=== PATIENT | female | born 1955 | race Caucasian/White ===

== ENCOUNTER 2017-08-05 11:30 | Inpatient (IN) | payer OTHER ==
[~2017-08-05] VITALS: Ht 152.4 cm; Wt 61.9 kg
[2017-08-11] MEDS ORDERED: VITA1000 PO (12:43)
[2017-08-11] MEDS ORDERED: HYDR-3583 PO (12:43)
[2017-08-11] MEDS ORDERED: OMEG100046 PO (12:43)
[2017-08-11] MEDS ORDERED: CALC1TAB87 PO (12:43)
[2017-08-11] MEDS ORDERED: LORA1TAB12 PO (12:43)
[2017-08-12] MEDS ORDERED: ceFAZolin INJ 1,000 MG VIAL ONE ×2 (10:24→12:12)
[2017-08-12] MEDS ORDERED: FUROSEMIDE 20 MG/2 ML VIAL ONE (10:24)
[2017-08-12] MEDS ORDERED: MANNITOL INJ 0 ML ONE (10:29)
[2017-08-12] MEDS ORDERED: CHLORHEXIDINE GLUCONATE 2 % 1 PACK (2 CLOTHS) TOPICAL PRN (10:30)
[2017-08-12] MEDS ORDERED: ceFAZolin 2 GM PREMIX 50 ML IV SCH ×3 (10:30→17:00)
[2017-08-12] MEDS ORDERED: METOPROLOL TARTRATE 25 MG TAB PO PRN (10:30)
[2017-08-12] MEDS ORDERED: INSULIN HUMAN REGULAR 1,000 UNITS/10 ML VIAL SQ PRN (10:30)
[2017-08-12] MEDS ORDERED: LACTATED RINGER'S 1000 ML IV PRN (10:30)
[2017-08-12] MEDS ORDERED: SODIUM CHLORID 0.9% 500 ML IV PRN (10:30)
[2017-08-12] MEDS ORDERED: POVIDONE IODINE 5% (ANTISEPSIS KIT) 4 APPLICATIONS EACH NARE PRN (10:30)
[2017-08-12] MEDS ORDERED: CYAN100025 PO (10:49)
[2017-08-12 10:54] LABS: PROTHROMBIN TIME - PATIENT 10.1 SEC (9.8-11.6)
[2017-08-12] MEDS ORDERED: hydrALAZINE HCL 20 MG/ML VIAL IV ONE (12:00)
[2017-08-12] MEDS ORDERED: PROPOFOL 200 MG/20 ML AMP IV ONE (12:00)
[2017-08-12] MEDS ORDERED: ONDANSETRON HCL 4 MG/2 ML VIAL IV ONE (12:00)
[2017-08-12] MEDS ORDERED: STERILE WATER FOR INJECTION 20 ML VIAL IV ONE (12:00)
[2017-08-12] MEDS ORDERED: ROCURONIUM INJ 50 MG/5 ML SYRINGE IV PUSH ONE ×2 (12:00→15:02)
[2017-08-12] MEDS ORDERED: NORMOSOL R INJ 1,000 ML IV ONE (12:00)
[2017-08-12] MEDS ORDERED: LABETALOL HCL 100 MG/20 ML VIAL IV ONE (12:00)
[2017-08-12] MEDS ORDERED: LIDOCAINE HCL 1% PF 5 ML SYRINGE OTHER ONE (12:00)
[2017-08-12] MEDS ORDERED: DEXAMETHASONE SOD PHOS 4 MG/ML VIAL IV ONE (12:00)
[2017-08-12] MEDS ORDERED: LACTATED RINGER'S 1000 ML INJ 1,000 ML IV ONE (12:00)
[2017-08-12] MEDS ORDERED: ACETAMINOPHEN 1000 MG/100 ML 100 ML IV ONE (13:13)
[2017-08-12] MEDS ORDERED: HYDROmorphone HCL PF 2 MG/ML VIAL ONE (13:14)
[2017-08-12] MEDS ORDERED: ceFAZolin INJ 1,000 MG VIAL IV ONE (13:23)
[2017-08-12] MEDS ORDERED: SUGAMMADEX SODIUM 200 MG/2 ML VIAL IV PUSH ONE (14:24)
[2017-08-12] MEDS ORDERED: ONDANSETRON HCL 4 MG/2 ML VIAL IV PUSH PRN (16:15)
--- NOTE | 2017-08-12 16:22 | HHI.PR ---
Immediate Post Op Note Procedure Date: Aug 12, 2017 Pre Op Diagnosis: Left Ureteral TCC Post Op Diagnosis: same Surgeon: Pierce Pelayo Photo Mask Processor(s): N/A Procedure: Robotic Left Nephroureterectomy Complications: none Specimen(s) removed: left kidney and ureter Estimated blood loss: 250 ml Anesthesia: General IVF Patient Condition: Pierce Patton MD Aug 12, 2017 16:22
[2017-08-12] MEDS ORDERED: DO NOT ADM ANY ANTICOAGULANT DRUGS PRN (17:03)
[2017-08-12] MEDS ORDERED: *ONDANSETRON 4 MG VIAL PERIprocedural Use ONLY ONE (17:22)
[2017-08-12 17:24] LABS: HEMATOCRIT 36.8 % (35.0-46.0); HEMOGLOBIN 13.2 GM/DL (11.6-15.3); MEAN CELL VOLUME 82.6 FL (80.0-100.0); MEAN CORPUSCULAR HEMOGLOBIN 29.7 PG (27.0-34.0); MEAN CORPUSCULAR HGB CONC 35.9 % (32.0-36.0); PLATELET COUNT 280 TH/MM3 (150-450); RED BLOOD COUNT 4.46 MIL/MM3 (4.00-5.30); RED CELL DISTRIBUTION WIDTH 12.6 % (11.6-17.2); WHITE BLOOD COUNT 17.8 TH/MM3 (4.0-11.0)
[2017-08-12] MEDS ORDERED: *morphine SULFATE 10 MG/ML PERIprocedure ONLY ONE ×2 (17:28→18:53)
[2017-08-12] MEDS: SODIUM CHLOR 0.9% 1000 ML INJ 1,000 ML IV SCH (17:30)
[2017-08-12] MEDS ORDERED: BELLADONNA ALKALOIDS/OPIUM 60 MG SUPP RECTAL ONE ×2 (17:32)
[2017-08-12 17:36] LABS: BICARBONATE 24.6 MEQ/L (21.0-32.0); CALCIUM 8.2 MG/DL (8.5-10.1); CREATININE 1.06 MG/DL (0.50-1.00)
[2017-08-12] MEDS ORDERED: *PROMETHAZINE 25 MG/ML VIAL PERIprocedural use ONLY ONE (17:39)
[2017-08-12] MEDS ORDERED: LORazepam 2 MG/ML VIAL ONE (17:59)
[2017-08-12] MEDS ORDERED: LORazepam 2 MG/ML VIAL IV ONE (18:15)
[2017-08-12] MEDS: PANTOPRAZOLE SODIUM 40 MG VIAL IV PUSH SCH (18:45)
[2017-08-12] MEDS: ACETAMINOPHEN 1000 MG/100 ML 100 ML IV SCH (19:00)
--- NOTE | 2017-08-12 19:22 | RADRPT ---
EXAM DATE/TIME: 08/12/2017 18:45 [facility] COMPARISON: No previous studies available for comparison. INDICATIONS : Rule out pneumonia, and or pneumothorax. MEDICAL HISTORY : None. SURGICAL HISTORY : None. ENCOUNTER: Initial ACUITY: 1 day PAIN SCORE: 0/10 LOCATION: Bilateral chest FINDINGS: The cardiac silhouette is enlarged in transverse diameter. There is no evidence of pneumothorax. The re is extensive subcutaneous emphysema bilaterally. The lungs are free of acute parenchymal opacity. No effusions are identified. CONCLUSION: 1. No evidence of pneumothorax. Extensive subcutaneous emphysema. CT scan is recommended for further evaluation if clinically indicated. Venkatesh Welch MD on August 12, 2017 at 19:20 Board Certified Radiologist. This report was verified electronically.
[2017-08-12 20:00] VITALS: BP 151/86; PULSE 72; RESP 14; TEMP 98.2; O2SAT 98
[2017-08-12] MEDS: DOCUSATE SODIUM 100 MG CAP PO SCH (20:27)
[2017-08-12] MEDS: MORPHINE SULFATE 4 MG/ML INJ IV PUSH PRN (20:46)
[2017-08-12] MEDS: LORazepam 1 MG TAB PO PRN (21:08)
[2017-08-12 22:00] VITALS: PULSE 72
[2017-08-13] VITALS (8 sets, daily range): BP systolic 107–129; BP diastolic 55–60; PULSE 68–78; RESP 13–22; TEMP 98.5–99.7; O2SAT 92–98
[2017-08-13] MEDS: ACETAMINOPHEN 1000 MG/100 ML 100 ML IV SCH ×3 (02:52→11:55)
[2017-08-13] MEDS: SODIUM CHLOR 0.9% 1000 ML INJ 1,000 ML IV SCH ×2 (02:57→11:56)
[2017-08-13 03:36] LABS: AUTOMATED NEUTROPHIL # 6.9 TH/MM3 (1.8-7.7); BASOPHIL % 0.1 % (0.0-2.0); HEMATOCRIT 37.3 % (35.0-46.0); HEMOGLOBIN 12.7 GM/DL (11.6-15.3); MEAN CELL VOLUME 84.2 FL (80.0-100.0); MEAN CORPUSCULAR HEMOGLOBIN 28.6 PG (27.0-34.0); MEAN PLATELET VOLUME 7.4 FL (7.0-11.0); MONO % 6.6 % (0.0-8.0); MONOCYTE # 0.6 TH/MM3 (0-0.9); NEUT % 72.3 % (16.0-70.0); PLATELET COUNT 251 TH/MM3 (150-450); RED BLOOD COUNT 4.44 MIL/MM3 (4.00-5.30); RED CELL DISTRIBUTION WIDTH 12.8 % (11.6-17.2); WHITE BLOOD COUNT 9.5 TH/MM3 (4.0-11.0)
[2017-08-13 04:02] LABS: CALCIUM 7.7 MG/DL (8.5-10.1); CREATININE 1.29 MG/DL (0.50-1.00)
[2017-08-13] MEDS: DOCUSATE SODIUM 100 MG CAP PO SCH ×2 (07:58→20:16)
[2017-08-13] MEDS: MORPHINE SULFATE 4 MG/ML INJ IV PUSH PRN ×4 (09:30→20:18)
--- NOTE | 2017-08-13 13:37 | HHI.PR ---
Subjective Patient symptoms today pain well controlled. Bladder spasms resolving. Tolerating clears. Has appetite. Denies CP/SOB/N/V/F/C or passing flatus. Been OOB x 1 Objective Vital Signs Vital Signs Date Time Temp Pulse Resp B/P (MAP) Pulse Ox O2 Delivery O2 Flow Rate FiO2 08/13/17 12:00 98.5 68 18 113/57 (75) 98 08/13/17 12:00 68 08/13/17 10:00 70 08/13/17 08:00 98.9 78 22 110/58 (75) 92 08/13/17 08:00 78 08/13/17 07:00 92 Nasal Cannula 3.00 08/13/17 06:00 76 08/13/17 04:00 99.3 72 15 107/55 (72) 98 08/13/17 04:00 72 08/13/17 02:00 71 08/13/17 00:00 73 08/13/17 00:00 98.7 73 13 122/59 (80) 97 08/12/17 22:00 72 08/12/17 20:00 72 08/12/17 20:00 98.2 72 14 151/86 (107) 98 Arterial Line 08/12/17 20:00 98 Nasal Cannula 3.00 08/12/17 19:30 97.8 74 18 129/64 (85) 96 Nasal Cannula 3 08/12/17 19:15 75 22 128/80 (96) 96 Nasal Cannula 3 08/12/17 19:00 78 16 128/86 (100) 96 Nasal Cannula 3 08/12/17 18:45 73 16 141/74 (96) 97 Nasal Cannula 3 08/12/17 18:30 71 16 141/67 (91) 98 Nasal Cannula 3 08/12/17 18:15 70 13 141/66 (91) 97 Nasal Cannula 3 08/12/17 18:00 71 14 136/64 (88) 92 Nasal Cannula 3 08/12/17 17:45 74 24 140/63 (88) 95 Nasal Cannula 2 154/67 (96) 08/12/17 17:30 71 22 132/68 (89) 94 Nasal Cannula 2 146/60 (88) 08/12/17 17:15 75 18 134/66 (88) 95 Nasal Cannula 2 148/63 (91) 08/12/17 17:12 Nasal Cannula 2 08/12/17 17:01 98.2 81 19 139/62 (87) 96 Nasal Cannula 4 Intake & Output 08/13/17 08/13/17 07:00 19:00 Intake Total 332 ml 1000 ml Output Total 875 ml Balance -543 ml 1000 ml Intake Oral 0 ml IV Total 332 ml 1000 ml Output Urine Total 875 ml Result Diagram: 08/13/1724808/13/17248 Objective Remarks NAD. A/O x 3 CTAB RRR abd soft, appropriate, NT. inc c/d/i. Rutherford crystal clear Ext NT. no edema Medications and IVs Current Medications Medications (Trade) Dose Ordered Sig/Bob Route Start Time Stop Time Status Last Admin Lactated Ringer's 1,000 ml @ 30 mls/hr Q24H PRN IV 08/12/17 10:30 08/15/17 10:29 08/12/17 10:00 Sodium Chloride 500 ml @ 30 mls/hr [id number] PRN IV 08/12/17 10:30 08/15/17 10:29 (Lopressor) 25 mg COAL SHOVELER PRN PO 08/12/17 10:30 08/15/17 10:29 (Betadine 5% Antisepsis Kit) 1 applic COAL SHOVELER PRN EACH NARE 08/12/17 10:30 08/15/17 10:29 08/12/17 10:00 (Chlorhexidine 2% Cloth) 3 pack COAL SHOVELER PRN TOPICAL 08/12/17 10:30 08/15/17 10:29 08/12/17 09:45 (NovoLIN R INJ) See Protocol Table ... COAL SHOVELER PRN SQ 08/12/17 10:30 08/15/17 10:29 (Colace) 100 mg BID PO 08/12/17 21:00 08/13/17 07:58 (Roxicodone) 10 mg Q4H PRN PO 08/12/17 16:15 08/13/17 12:16 (Roxicodone) 5 mg Q4H PRN PO 08/12/17 16:15 Acetaminophen 100 ml @ 400 mls/hr Q6H IV 08/12/17 19:00 08/13/17 11:55 (Morphine Inj) 4 mg Q3H PRN IV PUSH 08/12/17 16:15 08/13/17 13:30 (Zofran Inj) 4 mg Q6HR PRN IV PUSH 08/12/17 16:15 (Protonix Inj) 40 mg Q24H IV PUSH 08/12/17 17:00 08/12/17 18:45 Sodium Chloride 1,000 ml @ 83 mls/hr Q12H3M IV 08/12/17 16:15 08/13/17 11:56 (Ativan) 1 mg BID PRN PO 08/12/17 16:30 08/12/17 21:08 Cefazolin Sodium/ Dextrose 50 ml @ 100 mls/hr COAL SHOVELER IV 08/12/17 13:23 Miscellaneous Information ALL NURSING DEPARTME... UNSCH PRN .XX 08/12/17 17:03 08/13/17 17:02 Assessment and Plan Assessment and Plan POD #1 s/p Robotic Left Nephroureterectomy -Hgb stable -advance diet -Good UOP -BMP in a.m. -Ambulate, IS -transfer to floor -Rutherford catheter to remain in place x 5 days. Cystogram prior to removal. Pierce Pelayo MD Aug 13, 2017 13:37
[2017-08-13] MEDS: LORazepam 1 MG TAB PO PRN (16:51)
[2017-08-13] MEDS: oxyCODONE/ACETAMINOPHEN 5 MG/325 MG TAB PO PRN ×2 (17:59→23:28)
[2017-08-13] MEDS: PANTOPRAZOLE SODIUM 40 MG VIAL IV PUSH SCH (17:59)
[2017-08-13] MEDS ORDERED: MORPHINE SULFATE 2 MG/ML INJ IV PUSH ONE (18:00)
[2017-08-13] MEDS ORDERED: oxyCODONE/ACETAMINOPHEN 5 MG/325 MG TAB PO PRN (18:00)
[2017-08-14] VITALS: BP 119/60; PULSE 81; RESP 20; TEMP 99.4; O2SAT 93
[2017-08-14] MEDS: MORPHINE SULFATE 4 MG/ML INJ IV PUSH PRN ×3 (00:10→11:34)
[2017-08-14] MEDS: SODIUM CHLOR 0.9% 1000 ML INJ 1,000 ML IV SCH ×2 (00:14→12:35)
[2017-08-14] MEDS: oxyCODONE/ACETAMINOPHEN 5 MG/325 MG TAB PO PRN ×4 (03:35→19:49)
[2017-08-14 04:00] VITALS: BP 113/56; PULSE 80; RESP 20; TEMP 99.1; O2SAT 92
[2017-08-14 07:13] LABS: BICARBONATE 25.3 MEQ/L (21.0-32.0); CALCIUM 8.2 MG/DL (8.5-10.1); CREATININE 1.23 MG/DL (0.50-1.00)
[2017-08-14 08:00] VITALS: BP 133/60; PULSE 72; RESP 16; TEMP 97.6; O2SAT 96
[2017-08-14] MEDS: DOCUSATE SODIUM 100 MG CAP PO SCH ×2 (08:37→19:48)
[2017-08-14 12:00] VITALS: BP 174/80; PULSE 75; RESP 18; TEMP 97.1; O2SAT 94
--- NOTE | 2017-08-14 12:26 | MP ---
cc: Pierce Pelayo MD DATE OF OPERATION: 08/12/2017 PREOPERATIVE DIAGNOSIS: Left proximal ureteral transitional cell carcinoma. POSTOPERATIVE DIAGNOSIS: Left proximal ureteral transitional cell carcinoma. PROCEDURE PERFORMED: Robotic assisted laparoscopic left nephroureterectomy with bladder cuff. SURGEON: Pierce Pelayo MD ANESTHESIA: General. COMPLICATIONS: None. PREOPERATIVE ANTIBIOTICS: Ancef 1 gram IV. DRAINS: A 16 Portuguese Rutherford catheter to gravity drainage. SPECIMENS: Left kidney and ureter for permanent. BLOOD LOSS: 250 mL. FLUIDS: 3 liters of crystalloid per anesthesia. DISPOSITION: To recovery. INDICATIONS: The patient is a 62-year-old female who underwent a workup for microscopic hematuria. During workup, she was found to have a filling defect in her left proximal ureter. My partner, Dr. Shay, did a cystoscopy, ureteroscopy and ureteral biopsy which came back consistent with transitional cell carcinoma. Treatment options were discussed and she elected to proceed with definitive removal of her left kidney and ureter. Metastatic work up was negative. I discussed the risks, benefits and alternatives of the procedure with her including the risks of renal failure, dialysis, conversion to open, anesthetic risks, need for Rutherford catheter for 3 to 5 days among others and she elected to proceed. Informed consent was obtained. DETAILS OF THE PROCEDURE: The patient was properly identified, brought back to the operating room, laid supine on the operating room table. Proper time-out was performed under the direction of anesthesiology. The patient was intubated and induced under general anesthetic. Appropriate preoperative antibiotics were given within an one hour start of the procedure. An 16 Portuguese three-way Rutherford catheter was placed under sterile technique. Clear yellow urine returned. The patient was then placed in the right lateral decubitus position with left side up. All pressure points were padded. A stab incision was then made just lateral and superior to the umbilicus on the patient's left side. A Veress needle was then used to gain access to the abdominal cavity. Insufflation was achieved. The stab incision was then extended to approximately 2 cm in length. Under direct visualization, I then passed a long 12 mm camera port into the abdominal cavity. The abdominal cavity was inspected. There was no evidence of any bleeding or intraabdominal injury. At this time, 4 other ports were then placed under direct visualization including two 8 mm robotic ports to triangulate off of the camera port, a 12 mm commercial escrow assistant port in the midline superior to the umbilicus and a 12 mm commercial escrow assistant port inferior to the umbilicus along the midline. Again, all ports were placed under direct visualization. The robot was then brought into position. There was some anterior abdominal adhesions that were carefully taken down with cold dissection. At this time, I then reflected the white line of Toldt to reflect the colon medially. This exposed the retroperitoneum. She did have minimal perinephric fat. The ureter and gonadal vein were easily identified. I then developed a plane between the gonadal vein and ureter and marched up the psoas muscle following the insertion of the left gonadal vein into the left renal vein. The hilum was carefully dissected out circumferentially. There was an artery attaching anteriorly to the renal vein which was very small. It appeared to be a lower pole artery. This was taken with an endovascular stapler. This left one large renal vein which there was an obvious bifurcation, as well as a renal artery which was posterior to the vein. I was unable to separate the artery from the vein; therefore, I dissected circumferentially around both structures and these were taken together with an endovascular CHARISSE stapler. The superior and lateral attachments were then taken down with blunt dissection and electrocautery until the kidney was completely freed except inferiorly. I then carefully dissected the ureter caudally down to the level of the iliacs. A Hem-o-jasmeet clip was then placed across the mid ureter. With careful traction and a combination of blunt dissection electrocautery, I then was able to dissect the ureter all the way down to the level of the bladder. The bladder was then carefully filled up to approximately 300 mL to see the insertion of the ureter into the bladder. The bladder was then carefully drained. I then dissected the intramural ureter out of the bladder until I reached what presumably was the ureteral orifice. The robotic Hemo-o-jasmeet adjuster leader was then used to clip across the distal portion of the ureter. I then cut across the ureter with a small bladder cuff that was removed. The kidney plus ureter was then placed in the left lower quadrant for later removal. The bladder was carefully inspected as well as the low pelvis. There was no evidence of any bleeding. The hole in the bladder was quit small, therefore I did not close the hole in the bladder and let it heal secondarily to catheter drainage. At this time, the kidney and ureter was then placed in an Endo Catch bag for later removal. The renal fossa and hilum was carefully inspected. Pressure was brought down to 7 mmHg. There was no evidence of any oozing. Three grams of Briana was then used to apply for hemostatic purposes. At this time, the kidney was then extracted through the left lower quadrant incision after extending the incision. It was then closed in multiple layers. The perineum was then closed with 3-0 running Vicryl. The fascia was closed with a running 1-0 PDS. A second look was then performed in the abdominal cavity. The underside of the closure incision appeared to be free of bowel. There was no evidence of any bleeding within the abdominal cavity itself. The renal fossa did appear to be dry. All ports were then removed under direct visualization. The skin incisions were then closed with 4-0 Monocryl. This concludes the procedure. The patient was extubated and sent to recovery in stable condition. She will be transferred to the floor for routine postoperative care. We will do a cystogram prior to catheter removal in 3-5 days. Sponge, needles and instrument count was correct at the end of the case. Pierce Pelayo MD [facility]/ayden , 11:06 AM , 11:59 AM
--- NOTE | 2017-08-14 14:02 | HHI.PR ---
Subjective Patient symptoms today 62y.o. F POD #2 s/p Robotic Left Nephroureterectomy. No acute events overnight. no fever. She does admit nausea and indigestion related chest discomfort. Rutherford drains clear yellow urine. Labs are stable. She states that did not pass any flatus or BM today. Ambulates without issues. Tolerated breakfast well today. She is on regular diet now. Her main concern is her post/op pain which is not relieved by pain meds she is getting. She states that has probably 10% improvement with Morphine for short period of time Objective Vital Signs Vital Signs Date Time Temp Pulse Resp B/P (MAP) Pulse Ox O2 Delivery O2 Flow Rate FiO2 08/14/17 12:00 97.1 75 18 174/80 (111) 94 08/14/17 08:40 Nasal Cannula 2.00 08/14/17 08:00 97.6 72 16 133/60 (84) 96 08/14/17 04:00 99.1 80 20 113/56 (75) 92 08/14/17 00:00 99.4 81 20 119/60 (79) 93 08/13/17 20:15 Nasal Cannula 3.00 08/13/17 20:00 99.7 78 20 129/60 (83) 92 Intake & Output 08/14/17 08/14/17 07:00 19:00 Intake Total 120 ml Output Total 1000 ml Balance -880 ml Intake Oral 120 ml Output Urine Total 1000 ml # Bowel Movements 0 Result Diagram: 08/13/17 0249 08/14/17 0456 Objective Remarks NAD. A/O x 3 Non labored breaths, clear sounds RRR abd soft, appropriate, NT. inc c/d/i. Rutherford crystal clear Ext NT. no edema Medications and IVs Current Medications Medications (Trade) Dose Ordered Sig/Bob Route Start Time Stop Time Status Last Admin Lactated Ringer's 1,000 ml @ 30 mls/hr Q24H PRN IV 08/12/17 10:30 08/15/17 10:29 08/12/17 10:00 Sodium Chloride 500 ml @ 30 mls/hr [id number] PRN IV 08/12/17 10:30 08/15/17 10:29 (Lopressor) 25 mg RESEARCH GENETICIST PRN PO 08/12/17 10:30 08/15/17 10:29 (Betadine 5% Antisepsis Kit) 1 applic RESEARCH GENETICIST PRN EACH NARE 08/12/17 10:30 08/15/17 10:29 08/12/17 10:00 (Chlorhexidine 2% Cloth) 3 pack RESEARCH GENETICIST PRN TOPICAL 08/12/17 10:30 08/15/17 10:29 08/12/17 09:45 (NovoLIN R INJ) See Protocol Table ... RESEARCH GENETICIST PRN SQ 08/12/17 10:30 08/15/17 10:29 (Colace) 100 mg BID PO 08/12/17 21:00 08/14/17 08:37 (Morphine Inj) 4 mg Q3H PRN IV PUSH 08/12/17 16:15 08/14/17 11:34 (Zofran Inj) 4 mg Q6HR PRN IV PUSH 08/12/17 16:15 08/13/17 18:10 (Protonix Inj) 40 mg Q24H IV PUSH 08/12/17 17:00 08/13/17 17:59 Sodium Chloride 1,000 ml @ 83 mls/hr Q12H3M IV 08/12/17 16:15 08/14/17 12:35 (Ativan) 1 mg BID PRN PO 08/12/17 16:30 08/13/17 16:51 Cefazolin Sodium/ Dextrose 50 ml @ 100 mls/hr RESEARCH GENETICIST IV 08/12/17 13:23 (Percocet 5-325 Mg) 1 tab Q4H PRN PO 08/13/17 18:00 (Percocet 5-325 Mg) 2 tab Q4H PRN PO 08/13/17 18:00 08/14/17 13:38 Assessment and Plan Assessment and Plan POD #1 s/p Robotic Left Nephroureterectomy -Cr is stable, 1.23 -Ambulates and tolerates diet ( it was advanced to regular since AM) -Good UOP -Encouraged to use IS and ambulate more -Toradol 30mg IV for pain management added -Rutherford catheter to remain in place x 5 days. Cystogram prior to removal. Geo Chavez Aug 14, 2017 14:02
[2017-08-14] MEDS: KETOROLAC TROMETHAMINE 30 MG/ML (IVP) VIAL IV PUSH PRN (15:12)
[2017-08-14 16:00] VITALS: BP 130/61; PULSE 72; RESP 16; TEMP 97.7; O2SAT 95
[2017-08-14] MEDS: PANTOPRAZOLE SODIUM 40 MG VIAL IV PUSH SCH (17:45)
[2017-08-14 20:00] VITALS: BP 125/61; PULSE 69; RESP 16; TEMP 99.1; O2SAT 97
[2017-08-14] MEDS: LORazepam 1 MG TAB PO PRN (21:00)
[2017-08-15] VITALS: BP 127/59; PULSE 71; RESP 18; TEMP 98.7; O2SAT 92
[2017-08-15] MEDS: SODIUM CHLOR 0.9% 1000 ML INJ 1,000 ML IV SCH (02:16)
[2017-08-15] MEDS: KETOROLAC TROMETHAMINE 30 MG/ML (IVP) VIAL IV PUSH PRN ×3 (02:17→17:23)
[2017-08-15] MEDS: oxyCODONE/ACETAMINOPHEN 5 MG/325 MG TAB PO PRN ×5 (02:44→23:53)
[2017-08-15 05:09] LABS: AUTOMATED NEUTROPHIL # 5.6 TH/MM3 (1.8-7.7); BASOPHIL % 0.2 % (0.0-2.0); EOSINOPHIL # 0.3 TH/MM3 (0-0.4); EOSINOPHIL % 4.2 % (0.0-4.0); HEMATOCRIT 32.3 % (35.0-46.0); HEMOGLOBIN 11.1 GM/DL (11.6-15.3); LYMPH % 23.1 % (9.0-44.0); LYMPHOCYTE # 1.9 TH/MM3 (1.0-4.8); MEAN CORPUSCULAR HEMOGLOBIN 28.8 PG (27.0-34.0); MEAN CORPUSCULAR HGB CONC 34.3 % (32.0-36.0); MEAN PLATELET VOLUME 7.6 FL (7.0-11.0); MONO % 4.8 % (0.0-8.0); MONOCYTE # 0.4 TH/MM3 (0-0.9); NEUT % 67.7 % (16.0-70.0); PLATELET COUNT 201 TH/MM3 (150-450); RED BLOOD COUNT 3.84 MIL/MM3 (4.00-5.30); RED CELL DISTRIBUTION WIDTH 12.7 % (11.6-17.2); WHITE BLOOD COUNT 8.3 TH/MM3 (4.0-11.0)
[2017-08-15 05:10] LABS: CALCIUM 8.4 MG/DL (8.5-10.1); CREATININE 1.1 MG/DL (0.50-1.00)
[2017-08-15 08:00] VITALS: BP 141/68; PULSE 67; RESP 18; TEMP 98; O2SAT 92
[2017-08-15] MEDS: DOCUSATE SODIUM 100 MG CAP PO SCH ×2 (08:09→19:50)
[2017-08-15 12:00] VITALS: BP 128/64; PULSE 66; RESP 18; TEMP 97.4; O2SAT 96
--- NOTE | 2017-08-15 15:34 | HHI.PR ---
Subjective Patient symptoms today 62y.o. F POD # 3 s/p Robotic Left Nephroureterectomy. No acute events overnight. no f/c/n/v. She feels much better then yesterday. Her pain is better controlled with Toradol. Pacheco is in place drains well clear yellow urine. She admits a few episodes of possibly bladder spasms when she leaked some urine around pacheco. Ambulates well, no issues with diet. Admits passing flatus. No BM yet. Labs are improving Objective Vital Signs Vital Signs Date Time Temp Pulse Resp B/P (MAP) Pulse Ox O2 Delivery O2 Flow Rate FiO2 08/15/17 12:00 97.4 66 18 128/64 (85) 96 08/15/17 08:20 Nasal Cannula 2.00 08/15/17 08:00 98.0 67 18 141/68 (92) 92 08/15/17 00:00 98.7 71 18 127/59 (81) 92 08/14/17 20:00 99.1 69 16 125/61 (82) 97 08/14/17 19:45 Nasal Cannula 2.00 08/14/17 16:00 97.7 72 16 130/61 (84) 95 Intake & Output 08/15/17 08/15/17 07:00 19:00 Intake Total 1000 ml 623 ml Output Total 2000 ml Balance -1000 ml 623 ml IV Total 1000 ml 623 ml Output Urine Total 2000 ml Result Diagram: 08/15/17 0330 08/15/17 0330 Other Results NAD. A/O x 3 Non labored breaths, clear sounds RRR abd soft, appropriate, NT. inc c/d/i. Pacheco crystal clear Ext NT. no edema Medications and IVs Current Medications Medications (Trade) Dose Ordered Sig/Bob Route Start Time Stop Time Status Last Admin (Colace) 100 mg BID PO 08/12/17 21:00 08/15/17 08:09 (Morphine Inj) 4 mg Q3H PRN IV PUSH 08/12/17 16:15 Future Hold 08/14/17 11:34 (Zofran Inj) 4 mg Q6HR PRN IV PUSH 08/12/17 16:15 08/13/17 18:10 (Protonix Inj) 40 mg Q24H IV PUSH 08/12/17 17:00 08/14/17 17:45 (Ativan) 1 mg BID PRN PO 08/12/17 16:30 08/14/17 21:00 Cefazolin Sodium/ Dextrose 50 ml @ 100 mls/hr MANAGER COUNTRY IV 08/12/17 13:23 (Percocet 5-325 Mg) 1 tab Q4H PRN PO 08/13/17 18:00 (Percocet 5-325 Mg) 2 tab Q4H PRN PO 08/13/17 18:00 08/15/17 13:22 (Toradol Inj) 30 mg Q6H PRN IV PUSH 08/14/17 15:00 08/18/17 14:59 08/15/17 08:16 Assessment and Plan Assessment and Plan POD #3 s/p Robotic Left Nephroureterectomy -Cr is better, 1.1 today. -Ambulates and tolerates diet -Good UOP -Encouraged to use IS and ambulate more -Toradol 30mg IV manges pain well. - We will plan to d/c home later today -Pacheco catheter to remain in place x 5 days. Cystogram prior to removal Geo Chavez Aug 15, 2017 15:34
[2017-08-15 16:00] VITALS: BP 147/67; PULSE 72; RESP 18; TEMP 97.9; O2SAT 91
[2017-08-15] MEDS ORDERED: CIPR-9 PO (16:34)
[2017-08-15] MEDS ORDERED: OXYC1TAB63 PO (16:34)
[2017-08-15] MEDS ORDERED: DOCU1CAP39 PO (16:34)
[2017-08-15] MEDS: PANTOPRAZOLE SODIUM 40 MG VIAL IV PUSH SCH (17:23)
--- NOTE | 2017-08-15 18:05 | RADRPT ---
EXAM DATE/TIME: 08/15/2017 17:26 [facility] COMPARISON: No previous studies available for comparison. INDICATIONS : Post ureterectomy 2 minutes 13 CONTRAST: 300 cc Cystografin MEDICAL HISTORY : Carcinoma left kidney SURGICAL HISTORY : Ureterectomy ENCOUNTER: Initial ACUITY: 2 days PAIN SCORE: 0/10 LOCATION: Bladder FINDINGS: Preliminary film is unremarkable. No abnormal calcifications are identified. Following placement of a Rutherford catheter the bladder was filled in retrograde fashion to adequate dist ention and post images in multiple obliquities were obtained. The bladder is normal in contour with no evidence for bladder leak. No significant post void residual . CONCLUSION: Unremarkable cystogram. Sha Lucero MD on August 15, 2017 at 18:03 Board Certified Radiologist. This report was verified electronically.
[2017-08-15 20:00] VITALS: BP 171/73; PULSE 62; RESP 20; TEMP 98.2; O2SAT 95
[2017-08-15] MEDS ORDERED: DIATRIZOATE MEG 30% 300 ML BOTTLE (for RAD DIAG) URETHRAL ONE (20:29)
[2017-08-15] MEDS: LORazepam 1 MG TAB PO PRN (20:52)
[2017-08-16 00:17] VITALS: BP 132/65; PULSE 65; RESP 20; TEMP 96.4; O2SAT 93
[2017-08-16 08:00] VITALS: BP 150/69; PULSE 73; RESP 16; TEMP 97.5; O2SAT 94
[2017-08-16] MEDS: oxyCODONE/ACETAMINOPHEN 5 MG/325 MG TAB PO PRN (08:26)
[2017-08-16] MEDS: DOCUSATE SODIUM 100 MG CAP PO SCH (08:26)
== END 2017-08-16 11:24 | disposition home or self-care (01) | DRG 658 ==
LOC: HSDI 08-12 09:55 → N03A 08-12 19:56 → N07A 08-13 16:39
PROVIDERS: ADMIT Urology; ATTEND Urology
PROC: 0TT74ZZ Resection of Left Ureter, Percutaneous Endoscopic Approach (ICD-10-PCS; 2017-08-12)
PROC: 8E0W4CZ Robotic Assisted Procedure of Trunk Region, Percutaneous Endoscopic Approach (ICD-10-PCS; 2017-08-12)
PROC: 0TT14ZZ Resection of Left Kidney, Percutaneous Endoscopic Approach (ICD-10-PCS; principal; 2017-08-12 11:42)
DX: C66.2 Malignant neoplasm of left ureter (principal); N32.89 Other specified disorders of bladder; R31.29 Other microscopic hematuria; Z87.891 Personal history of nicotine dependence
CPT/HCPCS: 71045; 74430; 80048; 85025; 85027; 85610; 86850; 86900; 86901; 86920; 88305; 88307; 94150; C9113; J0131; J0360; J0690; J1100; J1170; J1885; J1940; J2060; J2150; J2270; J2405; J2550; J3010; J7030; J7120; Q9958